=== PATIENT | female | born 1955 | race African-American/Black ===

== ENCOUNTER → 2016-12-21 | Outpatient (CLI) | payer MEDICARE, MEDICAID ==
[~2016-12-21] MED LIST: ALLO100T PO; B-CO800T2 PO; BENA20TA14 PO; CALC667C5 PO; CARV3.1240 PO; CINA30TA2 PO; FOLITAB22 PO; ISOS60TA24 PO; LANT1000 PO; LEV100T GT; LOVA20TA4 PO; MID10T PO; PREG50CA PO; SEVE800T8 PO
[2016-12-22 05:07] LABS: Rheumatoid Arthritis Factor <10.0 IU/mL (0.0-13.9)
== END | disposition home or self-care (01) ==
LOC: LAB 11:21
PROVIDERS: ATTEND Internal Medicine
DX: M25.50 Pain in unspecified joint (principal)
CPT/HCPCS: 36415; 82607; 83540; 84550; 86038; 86200; 86431

== ENCOUNTER 2017-04-06 23:21 | Inpatient (IN) | payer MEDICARE, MEDICAID ==
[~2017-04-06] VITALS: Ht 160 cm; Wt 147.3 kg
[2017-04-06] MEDS ORDERED: VANCOMYCIN 1GM/250ML 250 ML IV ONE (23:45)
[2017-04-06] MEDS ORDERED: cefTRIAXone 1GM/10ml IVPUSH 10 ML IV ONE (23:45)
[2017-04-07 00:23] LABS: Basophils # (auto) 0.1 uL; Basophils % (auto) 0.6 % (0.0-2.0); Eosinophils # (auto) 0.2 uL; Eosinophils % (auto) 2.3 % (0.0-7.0); Hematocrit 29.4 % (36.0-46.0); Hemoglobin 9.7 g/dL (12.2-16.2); Lymphocytes # (auto) 1.2 uL; Lymphocytes % (auto) 12.4 % (10.0-50.0); Mean Corpuscular Hemoglobin 30.4 pg (28.0-32.0); Mean Corpuscular Volume 92.3 fL (80.0-100.0); Monocytes # (auto) 0.9 uL; Monocytes % (auto) 8.6 % (0.0-12.0); Neutrophils # (auto) 7.6 uL; Neutrophils % (auto) 76.1 % (37.0-80.0); Platelet Count (auto) 231 10^3/uL (140-450); Red Blood Cells 3.18 10^6/uL (4.0-5.20); Red Cell Distribution Width 14.7 % (11.8-14.3)
[2017-04-07 00:50] LABS: Albumin 3.2 g/dL (3.4-5.0); BUN/Creatinine Ratio 3.4; Bilirubin, Total 0.5 mg/dL (0.2-1.0); Calcium 8.2 mg/dL (8.5-10.1); Total Protein 8.4 g/dL (6.4-8.2)
[2017-04-07] MEDS ORDERED: CARVEDILOL 3.125 MG TAB PO ONE (02:25)
[2017-04-07] MEDS ORDERED: HYDROcodone-ACET 5/325MG TAB PO ONE (02:25)
[2017-04-07] MEDS ORDERED: B-COTAB26 OR (05:08)
[2017-04-07] MEDS ORDERED: LEVO112T4 PO (05:18)
[2017-04-07] MEDS ORDERED: CINA30TA2 PO ×2 (05:18→18:50)
[2017-04-07] MEDS ORDERED: CARV3.1240 PO (05:18)
[2017-04-07] MEDS ORDERED: ISOS60TA24 PO (05:18)
[2017-04-07] MEDS ORDERED: CALC667T2 PO (05:18)
[2017-04-07] MEDS ORDERED: FOLI1TAB6 PO ×2 (05:18)
[2017-04-07] MEDS ORDERED: LOVA20TA4 PO (05:18)
[2017-04-07] MEDS ORDERED: BENA20TA14 PO (05:18)
[2017-04-07] MEDS ORDERED: ALLO100T PO (05:18)
[2017-04-07] MEDS ORDERED: VANCOMYCIN PER PHARMACY 0 MG IV SCH (05:30)
[2017-04-07] MEDS: PIPERACILLIN-TAZOB 2.25GM 50 ML IV SCH ×2 (06:25→18:31)
[2017-04-07] MEDS ORDERED: ONDANSETRON HCL 4 MG/2 ML VIAL IV PRN (07:00)
[2017-04-07] MEDS ORDERED: ACETAMINOPHEN 500 MG TAB PO PRN (07:00)
[2017-04-07] MEDS: LEVOTHYROXINE SODIUM 112 MCG TAB PO SCH (07:30)
[2017-04-07] MEDS: SEVELAMER 800 MG TAB PO SCH ×3 (07:34→17:32)
[2017-04-07 08:00] VITALS: BP 146/64
[2017-04-07 09:00] VITALS: BP 148/98
[2017-04-07] MEDS: CARVEDILOL 3.125 MG TAB PO SCH ×2 (09:08→21:55)
[2017-04-07] MEDS ORDERED: EPOETIN ALFA 10,000 UNIT/1 ML VIAL IV ONE (09:45)
[2017-04-07] MEDS ORDERED: SODIUM CHL 0.9% 1000 ML BAG XX ONE (09:45)
[2017-04-07] MEDS ORDERED: ISOSORBIDE MONONITRATE 60 MG TAB PO SCH (10:00)
[2017-04-07] MEDS: HYDROcodone-ACET 5/325MG TAB PO PRN ×2 (12:04→23:24)
[2017-04-07 13:00] VITALS: BP 126/69
[2017-04-07] MEDS ORDERED: BENAZEPRIL HCL 10 MG TAB PO ONE (13:30)
[2017-04-07] MEDS ORDERED: ISOSORBIDE MONONITRATE 60 MG TAB PO ONE (13:30)
[2017-04-07 14:50] LABS: Free T3 1.88 pg/mL (2.3-4.2); Free T4 (Free Thyroxine) 0.78 ng/dL (0.89-1.76)
[2017-04-07 16:46] VITALS: BP 140/71
[2017-04-07] MEDS ORDERED: LANT1000 PO (18:47)
[2017-04-07] MEDS ORDERED: ASPI81TA27 PO (18:47)
[2017-04-07] MEDS ORDERED: MIDO10TA PO (18:50)
[2017-04-07 21:49] VITALS: BP 150/90
[2017-04-07] MEDS: ATORVASTATIN 20 MG TAB PO SCH (22:23)
[2017-04-07] MEDS ORDERED: VANCOMYCIN 1GM/250ML 250 ML IV SCH (23:00)
[2017-04-08] VITALS (7 sets, daily range): BP systolic 131–179; BP diastolic 61–95
[2017-04-08] MEDS: PIPERACILLIN-TAZOB 2.25GM 50 ML IV SCH ×2 (06:11→18:04)
[2017-04-08] MEDS: HYDROcodone-ACET 5/325MG TAB PO PRN ×4 (06:16→21:54)
[2017-04-08] MEDS: LEVOTHYROXINE SODIUM 112 MCG TAB PO SCH (06:34)
[2017-04-08 06:43] LABS: Basophils # (auto) 0.1 uL; Eosinophils # (auto) 0.3 uL; Eosinophils % (auto) 4.6 % (0.0-7.0); Hematocrit 27.2 % (36.0-46.0); Hemoglobin 8.9 g/dL (12.2-16.2); Lymphocytes # (auto) 1.7 uL; Lymphocytes % (auto) 22.9 % (10.0-50.0); Mean Corpuscular Hemoglobin 30.6 pg (28.0-32.0); Mean Corpuscular Hgb Conc. 32.7 g/dL (32.0-36.0); Mean Corpuscular Volume 93.7 fL (80.0-100.0); Monocytes # (auto) 0.8 uL; Monocytes % (auto) 10.5 % (0.0-12.0); Neutrophils # (auto) 4.6 uL; Platelet Count (auto) 232 10^3/uL (140-450); Red Cell Distribution Width 15.1 % (11.8-14.3); White Blood Cell 7.5 10^3/uL (4.4-10.8)
[2017-04-08 07:11] LABS: BUN/Creatinine Ratio 4.1; Calcium 8.5 mg/dL (8.5-10.1); INR 1.06 (0.9-1.15); Partial Thromboplastin Time 29.1 sec (22.64-33.71); Potassium 4.3 mmol/L (3.5-5.1); Prothrombin Time 11.6 sec (9.37-12.3)
[2017-04-08 07:13] LABS: Bilirubin, Total 0.5 mg/dL (0.2-1.0); Total Protein 7.8 g/dL (6.4-8.2)
[2017-04-08] MEDS ORDERED: diphenhdrAMINE HCL 50 MG/1 ML VL IV ONE (07:30)
[2017-04-08] MEDS: SEVELAMER 800 MG TAB PO SCH ×3 (08:00→18:04)
[2017-04-08] MEDS ORDERED: EPOETIN ALFA 10,000 UNIT/1 ML VIAL IV ONE ×2 (10:00→20:15)
[2017-04-08] MEDS: BENAZEPRIL HCL 10 MG TAB PO SCH (10:48)
[2017-04-08] MEDS: ISOSORBIDE MONONITRATE 60 MG TAB PO SCH (10:49)
[2017-04-08] MEDS: CARVEDILOL 3.125 MG TAB PO SCH ×2 (10:52→21:50)
[2017-04-08] MEDS ORDERED: LABETALOL HCL 5 MG/ML ML 20ML VIAL IV PRN (11:15)
[2017-04-08] MEDS ORDERED: PREG75CA PO (16:14)
[2017-04-08] MEDS ORDERED: SEVE800T8 PO (17:05)
[2017-04-08] MEDS ORDERED: SODIUM CHL 0.9% 1000 ML BAG XX ONE (20:15)
[2017-04-08] MEDS: ATORVASTATIN 20 MG TAB PO SCH (21:49)
[2017-04-08] MEDS: PREGABALIN CAPSULE 75 MG CAP PO SCH (21:50)
[2017-04-09] MEDS: HYDROcodone-ACET 5/325MG TAB PO PRN ×4 (02:30→22:46)
[2017-04-09 05:00] VITALS: BP 150/70
[2017-04-09] MEDS: PIPERACILLIN-TAZOB 2.25GM 50 ML IV SCH (05:58)
[2017-04-09] MEDS: LEVOTHYROXINE SODIUM 25 MCG TAB PO SCH (06:47)
[2017-04-09] MEDS: LEVOTHYROXINE SODIUM 100 MCG TAB PO SCH (06:47)
[2017-04-09 06:53] LABS: BUN/Creatinine Ratio 3.9; Bilirubin, Total 0.5 mg/dL (0.2-1.0); Calcium 8.3 mg/dL (8.5-10.1); Potassium 4.2 mmol/L (3.5-5.1); Total Protein 7.8 g/dL (6.4-8.2)
[2017-04-09 08:00] VITALS: BP 182/93
[2017-04-09] MEDS: SEVELAMER 800 MG TAB PO SCH ×3 (08:00→18:58)
[2017-04-09 09:00] VITALS: BP 137/113
[2017-04-09] MEDS ORDERED: VANCOMYCIN 1GM/250ML 250 ML IV ONE (09:00)
[2017-04-09] MEDS ORDERED: LEVOFLOXACIN 250MG 50 ML IV SCH (09:15)
[2017-04-09] MEDS ORDERED: LEVOFLOXACIN 750MG 150 ML IV ONE (09:15)
[2017-04-09] MEDS: PREGABALIN CAPSULE 75 MG CAP PO SCH ×2 (10:00→21:56)
[2017-04-09] MEDS: CARVEDILOL 3.125 MG TAB PO SCH ×2 (11:42→22:12)
[2017-04-09] MEDS: BENAZEPRIL HCL 10 MG TAB PO SCH (11:42)
[2017-04-09] MEDS: ISOSORBIDE MONONITRATE 60 MG TAB PO SCH (11:43)
[2017-04-09 12:30] VITALS: BP 151/78
[2017-04-09] MEDS ORDERED: BUPIVACAINE 0.75% INJ 10ML MPV SDV IJ ONE (13:03)
[2017-04-09] MEDS ORDERED: ceFAZolin 1GM VL ONE (13:03)
[2017-04-09] MEDS ORDERED: NEOMYCIN-BACITRACIN-POLYM 15GM TOP OINT TOP ONE (13:03)
[2017-04-09] MEDS ORDERED: MIDAZOLAM HCL 1MG/1ML-2 ML VIAL ONE (14:12)
[2017-04-09] MEDS ORDERED: PROPOFOL 10 MG/ML 20 ML IV ONE (14:12)
[2017-04-09] MEDS ORDERED: fentaNYL CITRATE 100 MCG/2 ML VL ONE (14:12)
[2017-04-09] MEDS ORDERED: ONDANSETRON HCL 4 MG/2 ML VIAL IV ONE (14:45)
[2017-04-09] MEDS ORDERED: hydrALAZINE HCL 20 MG/ML VL IV PRN (14:45)
[2017-04-09] MEDS ORDERED: ePHEDrine SULFATE 50 MG/ML AMP IV PRN (14:45)
[2017-04-09] MEDS ORDERED: fentaNYL CITRATE 100 MCG/2 ML VL IV ONE (15:00)
[2017-04-09 16:21] VITALS: BP 145/75
[2017-04-09] MEDS: ATORVASTATIN 20 MG TAB PO SCH (21:56)
[2017-04-09 22:02] VITALS: BP 154/88
[2017-04-10] MEDS: HYDROcodone-ACET 5/325MG TAB PO PRN ×2 (03:28→17:57)
[2017-04-10 05:00] VITALS: BP 130/75
[2017-04-10] MEDS: LEVOTHYROXINE SODIUM 25 MCG TAB PO SCH (06:15)
[2017-04-10] MEDS: LEVOTHYROXINE SODIUM 100 MCG TAB PO SCH (06:15)
[2017-04-10 08:00] VITALS: BP 131/81
[2017-04-10] MEDS: SEVELAMER 800 MG TAB PO SCH ×3 (08:15→19:03)
[2017-04-10 08:38] LABS: Albumin 2.7 g/dL (3.4-5.0); BUN/Creatinine Ratio 4.5; Calcium 8.6 mg/dL (8.5-10.1)
[2017-04-10 08:40] LABS: Bilirubin, Total 0.4 mg/dL (0.2-1.0); Total Protein 7.4 g/dL (6.4-8.2)
[2017-04-10 08:53] VITALS: BP 131/81
[2017-04-10] MEDS: ISOSORBIDE MONONITRATE 60 MG TAB PO SCH (09:40)
[2017-04-10] MEDS: PREGABALIN CAPSULE 75 MG CAP PO SCH (09:40)
[2017-04-10] MEDS: CARVEDILOL 3.125 MG TAB PO SCH (09:40)
[2017-04-10] MEDS: BENAZEPRIL HCL 10 MG TAB PO SCH (09:41)
[2017-04-10] MEDS ORDERED: LEVOFLOXACIN 250MG 50 ML IV SCH (10:00)
[2017-04-10] MEDS ORDERED: BACITRACIN TOP OINT 1 UD PKG TOP ONE (12:00)
[2017-04-10 13:14] VITALS: BP 136/85
[2017-04-10] MEDS ORDERED: VANCOMYCIN 500 MG in D5W 5% 100 ML IV ONE (14:00)
[2017-04-10] MEDS ORDERED: EPOETIN ALFA 10,000 UNIT/1 ML VIAL IV ONE (15:30)
[2017-04-10 17:00] VITALS: BP 115/65
== END 2017-04-10 18:00 | disposition home health service (06) | DRG 623 ==
LOC: ER 23:25 → OVERFLOW 23:26 → WEST WING 04-07 08:06
PROVIDERS: ADMIT Nurse Practitioner Family; ATTEND Internal Medicine
PROC: 5A1D70Z Performance of Urinary Filtration, Intermittent, Less than 6 Hours Per Day (ICD-10-PCS; 2017-04-08)
PROC: 0J9Q0ZX Drainage of Right Foot Subcutaneous Tissue and Fascia, Open Approach, Diagnostic (ICD-10-PCS; 2017-04-09)
PROC: 0JBQ0ZZ Excision of Right Foot Subcutaneous Tissue and Fascia, Open Approach (ICD-10-PCS; principal; 2017-04-09 14:03)
PROC: 5A1D70Z Performance of Urinary Filtration, Intermittent, Less than 6 Hours Per Day (ICD-10-PCS; 2017-04-10)
DX: E11.621 Type 2 diabetes mellitus with foot ulcer (principal); I13.2 Hypertensive heart and chronic kidney disease with heart failure and with stage 5 chronic kidney disease, or end stage renal disease; L97.519 Non-pressure chronic ulcer of other part of right foot with unspecified severity; E44.0 Moderate protein-calorie malnutrition; E11.21 Type 2 diabetes mellitus with diabetic nephropathy; L03.115 Cellulitis of right lower limb; L02.611 Cutaneous abscess of right foot; Z68.43 Body mass index [BMI] 50.0-59.9, adult; N18.6 End stage renal disease; E11.22 Type 2 diabetes mellitus with diabetic chronic kidney disease; D63.8 Anemia in other chronic diseases classified elsewhere; E03.9 Hypothyroidism, unspecified; M10.9 Gout, unspecified; E11.628 Type 2 diabetes mellitus with other skin complications; B95.62 Methicillin resistant Staphylococcus aureus infection as the cause of diseases classified elsewhere; E66.01 Morbid (severe) obesity due to excess calories; E78.5 Hyperlipidemia, unspecified; E21.3 Hyperparathyroidism, unspecified; E87.5 Hyperkalemia; G89.29 Other chronic pain; M54.9 Dorsalgia, unspecified; I50.9 Heart failure, unspecified; Z79.899 Other long term (current) drug therapy; Z82.49 Family history of ischemic heart disease and other diseases of the circulatory system; Z83.3 Family history of diabetes mellitus; Z86.73 Personal history of transient ischemic attack (TIA), and cerebral infarction without residual deficits; Z99.2 Dependence on renal dialysis; Z90.710 Acquired absence of both cervix and uterus; Z71.3 Dietary counseling and surveillance
CPT/HCPCS: 36415; 71045; 73630; 73700; 80053; 80202; 83605; 84439; 84443; 84481; 85025; 85610; 85652; 85730; 87040; 87070; 87075; 87077; 87186; 87205; 90935; 93005; 93926; 96365; 96375; J0690; J0885; J1642; J1956; J2250; J2543; J2704; J3490; J7060

== ENCOUNTER → 2017-04-20 | Outpatient (CLI) | payer MEDICARE, MEDICAID ==
[~2017-04-20] MED LIST changes: +ASPI81TA27 PO; +FOLI1TAB6 PO; -FOLITAB22 PO; -LEV100T GT; -MID10T PO; +MIDO10TA PO; -PREG50CA PO; +PREG75CA PO
== END | disposition home or self-care (01) ==
LOC: LAB 14:07
PROVIDERS: ATTEND Internal Medicine
DX: E03.9 Hypothyroidism, unspecified (principal); M25.50 Pain in unspecified joint; R51 Headache; Z86.79 Personal history of other diseases of the circulatory system; Z99.2 Dependence on renal dialysis
CPT/HCPCS: 36415; 82565; 84439; 84443; 84520; 86225; 86235

== ENCOUNTER → 2017-09-03 | Outpatient (CLI) | payer MEDICARE, MEDICAID ==
[2017-09-03 12:56] LABS: Basophils # (auto) 0 uL; Basophils % (auto) 0.4 % (0.0-2.0); Eosinophils # (auto) 0.1 uL; Eosinophils % (auto) 2.2 % (0.0-7.0); Hematocrit 35.7 % (36.0-46.0); Hemoglobin 11.5 g/dL (12.2-16.2); Lymphocytes # (auto) 1.6 uL; Lymphocytes % (auto) 28.5 % (10.0-50.0); Mean Corpuscular Hgb Conc. 32.2 g/dL (32.0-36.0); Mean Corpuscular Volume 89.9 fL (80.0-100.0); Monocytes # (auto) 0.5 uL; Monocytes % (auto) 8.8 % (0.0-12.0); Neutrophils # (auto) 3.5 uL; Neutrophils % (auto) 60.1 % (37.0-80.0); Nucleated Red Blood Cells % 0.1 %; Platelet Count (auto) 183 10^3/uL (140-450); Red Blood Cells 3.98 10^6/uL (4.0-5.20); Red Cell Distribution Width 17.4 % (11.8-14.3); White Blood Cell 5.8 10^3/uL (4.4-10.8)
[2017-09-03 13:13] LABS: Albumin 3.5 g/dL (3.4-5.0); BUN/Creatinine Ratio 5.4; Bilirubin, Total 0.5 mg/dL (0.2-1.0); Calcium 8.7 mg/dL (8.5-10.1); Total Protein 8.3 g/dL (6.4-8.2); Uric Acid 3.4 mg/dL (2.6-6.0)
[2017-09-03 13:20] LABS: Free T4 (Free Thyroxine) 0.7 ng/dL (0.89-1.76)
== END | disposition home or self-care (01) ==
LOC: LAB 11:53
PROVIDERS: ATTEND Internal Medicine
DX: I12.0 Hypertensive chronic kidney disease with stage 5 chronic kidney disease or end stage renal disease (principal); E11.22 Type 2 diabetes mellitus with diabetic chronic kidney disease; N18.6 End stage renal disease; E78.5 Hyperlipidemia, unspecified; E03.9 Hypothyroidism, unspecified; E78.00 Pure hypercholesterolemia, unspecified; R11.0 Nausea
CPT/HCPCS: 36415; 80053; 82150; 82607; 83540; 83615; 83690; 84439; 84443; 84550; 85025

== ENCOUNTER → 2018-05-24 | Outpatient (CLI) | payer MEDICARE, MEDICAID ==
[2018-05-24 12:13] LABS: Basophils # (auto) 0.1 uL; Basophils % (auto) 0.9 % (0.0-2.0); Eosinophils # (auto) 0.1 uL; Eosinophils % (auto) 2.3 % (0.0-7.0); Hematocrit 37.8 % (36.0-46.0); Hemoglobin 12.3 g/dL (12.2-16.2); Mean Corpuscular Hgb Conc. 32.5 g/dL (32.0-36.0); Mean Corpuscular Volume 89.2 fL (80.0-100.0); Monocytes # (auto) 0.4 uL; Monocytes % (auto) 7.2 % (0.0-12.0); Neutrophils # (auto) 3.4 uL; Neutrophils % (auto) 56.6 % (37.0-80.0); Nucleated Red Blood Cells % 0.1 %; Platelet Count (auto) 181 10^3/uL (140-450); Red Blood Cells 4.24 10^6/uL (4.0-5.20); Red Cell Distribution Width 15.9 % (11.8-14.3)
[2018-05-24 12:40] LABS: Albumin 3.4 g/dL (3.4-5.0); Calcium 9.9 mg/dL (8.5-10.1); Potassium 4.5 mmol/L (3.5-5.1)
[2018-05-24 12:47] LABS: BUN/Creatinine Ratio 5.6; Bilirubin, Total 0.5 mg/dL (0.2-1.0); Total Protein 8.2 g/dL (6.4-8.2)
[2018-05-24 12:51] LABS: Free T4 (Free Thyroxine) 0.72 ng/dL (0.89-1.76)
== END | disposition home or self-care (01) ==
LOC: LAB 11:23
PROVIDERS: ATTEND Internal Medicine
DX: I13.2 Hypertensive heart and chronic kidney disease with heart failure and with stage 5 chronic kidney disease, or end stage renal disease (principal); N18.5 Chronic kidney disease, stage 5
CPT/HCPCS: 36415; 80053; 80061; 82607; 84207; 84439; 84443; 84550; 85025; 85652

== ENCOUNTER 2019-05-01 19:09 | Inpatient (IN) | payer MEDICARE, MEDICAID ==
[~2019-05-01] VITALS: Ht 160 cm; Wt 112.7 kg
[~2019-05-01 19:09] MED LIST changes: +ASPI-404 PO; -ASPI81TA27 PO; -BENA20TA14 PO; -CALC667C5 PO; -ISOS60TA24 PO; +LEVO112T4 PO; -MIDO10TA PO; +MIDO10TA2 PO; -SEVE800T8 PO; +WARF1TAB PO
[2019-05-01] MEDS ORDERED: ONDANSETRON HCL 4 MG/2 ML VIAL IV ONE (19:30)
[2019-05-01] MEDS ORDERED: MORPHINE SULFATE 10 MG/ML INJ 1ML SDV IV ONE (19:30)
[2019-05-01] MEDS ORDERED: LORazepam 2MG/ML-1ML VIAL IV ONE (19:30)
[2019-05-01 21:10] LABS: Basophils # (auto) 0 uL; Eosinophils # (auto) 0 uL; Hemoglobin 7.2 g/dL (12.2-16.2)
[2019-05-01 21:13] LABS: Basophils % (auto) 0.1 % (0.0-2.0); Eosinophils % (auto) 0.1 % (0.0-7.0); Hematocrit 21.6 % (36.0-46.0); Lymphocytes # (auto) 1.4 uL; Lymphocytes % (auto) 13.3 % (10.0-50.0); Mean Corpuscular Hemoglobin 28.6 pg (28.0-32.0); Mean Corpuscular Hgb Conc. 33.1 g/dL (32.0-36.0); Mean Corpuscular Volume 86.4 fL (80.0-100.0); Monocytes # (auto) 0.7 uL; Monocytes % (auto) 6.9 % (0.0-12.0); Neutrophils # (auto) 8.4 uL; Neutrophils % (auto) 79.6 % (37.0-80.0); Platelet Count (auto) 214 10^3/uL (140-450); Red Cell Distribution Width 22.9 % (11.8-14.3); White Blood Cell 10.6 10^3/uL (4.4-10.8)
[2019-05-01 21:29] LABS: INR 1.36 (0.9-1.15); Partial Thromboplastin Time 65.5 sec (23.64-32.05)
[2019-05-01] MEDS ORDERED: SODIUM CHLORIDE 0.9% 500 ML IV ONE (21:30)
[2019-05-01] MEDS ORDERED: NITROGLYCERIN 0.4MG/HR TOPICAL PATCH TD ONE (21:30)
[2019-05-01 21:41] LABS: Albumin 2.4 g/dL (3.4-5.0); BUN/Creatinine Ratio 4.5; Bilirubin, Total 0.9 mg/dL (0.2-1.0); Calcium 8.5 mg/dL (8.5-10.1); Magnesium 1.9 mg/dL (1.6-2.6); Total Protein 7.9 g/dL (6.4-8.2)
[2019-05-02] VITALS (8 sets, daily range): BP systolic 80–112; BP diastolic 32–84
[2019-05-02] MEDS ORDERED: DOCUSATE SOD 100 MG CAP PO PRN
[2019-05-02] MEDS ORDERED: MORPHINE SULFATE 4 MG/ML SYR/VIAL IV PRN
[2019-05-02] MEDS ORDERED: NITROGLYCERIN 0.4 MG SL TAB SL PRN
[2019-05-02] MEDS ORDERED: ACETAMINOPHEN 325 MG TAB PO PRN
[2019-05-02] MEDS ORDERED: ONDANSETRON HCL 4 MG/2 ML VIAL IV PRN
[2019-05-02] MEDS ORDERED: MORPHINE SULF INJ 2 MG/ML SYRINGE 1ML IV PRN
[2019-05-02] MEDS: HYDROcodone-ACET 5/325MG TAB PO PRN ×4 (03:02→20:47)
[2019-05-02] MEDS: LEVOTHYROXINE SODIUM 112 MCG TAB PO SCH (06:32)
[2019-05-02] MEDS ORDERED: CARVEDILOL 3.125 MG TAB PO SCH ×2 (10:00→22:00)
[2019-05-02] MEDS: CINACALCET HYDROCHLORIDE 30 MG TAB PO SCH (10:00)
[2019-05-02] MEDS ORDERED: PATIENTS OWN MEDICATION (Lovastatin 10 MG) PO SCH (10:00)
[2019-05-02] MEDS: ASPirin-EC 81 mg tab PO SCH (10:37)
[2019-05-02] MEDS: FOLIC ACID 1 MG TAB PO SCH (10:48)
[2019-05-02] MEDS ORDERED: POTASSIUM CHL 20 Meq TABLET PO ONE (15:45)
[2019-05-02 16:32] LABS: Basophils # (auto) 0.1 uL; Eosinophils # (auto) 0.1 uL; Eosinophils % (auto) 1.2 % (0.0-7.0); Lymphocytes # (auto) 1.5 uL; Monocytes # (auto) 0.9 uL; Platelet Count (auto) 232 10^3/uL (140-450)
[2019-05-02 16:34] LABS: Basophils % (auto) 0.8 % (0.0-2.0); Hematocrit 20.5 % (36.0-46.0); Lymphocytes % (auto) 17.1 % (10.0-50.0); Mean Corpuscular Hemoglobin 27.9 pg (28.0-32.0); Mean Corpuscular Hgb Conc. 32.1 g/dL (32.0-36.0); Monocytes % (auto) 10.1 % (0.0-12.0); Neutrophils # (auto) 6.4 uL; Neutrophils % (auto) 70.8 % (37.0-80.0); Red Blood Cells 2.36 10^6/uL (4.0-5.20)
[2019-05-02 16:37] LABS: Red Cell Distribution Width 22.8 % (11.8-14.3)
[2019-05-02 16:39] LABS: Hemoglobin 6.6 g/dL (12.2-16.2)
[2019-05-02 16:49] LABS: Albumin 2.3 g/dL (3.4-5.0); Calcium 8.4 mg/dL (8.5-10.1); Potassium 3.3 mmol/L (3.5-5.1)
[2019-05-02 16:53] LABS: BUN/Creatinine Ratio 4.3; Bilirubin, Total 0.8 mg/dL (0.2-1.0); Total Protein 7.4 g/dL (6.4-8.2)
[2019-05-02] MEDS ORDERED: WARFARIN SODIUM 1 MG TAB PO SCH (17:00)
[2019-05-02] MEDS: CARVEDILOL 3.125 MG TAB PO SCH (18:00)
[2019-05-02] MEDS: MORPHINE SULF INJ 2 MG/ML SYRINGE 1ML IV PRN (19:19)
[2019-05-02] MEDS: ATORVASTATIN 20 MG TAB PO SCH (21:25)
[2019-05-02] MEDS: APIXABAN 5 MG TAB PO SCH (21:25)
[2019-05-02] MEDS ORDERED: PRAVASTATIN SODIUM 20 MG TAB PO SCH (22:00)
[2019-05-02] MEDS ORDERED: PREGABALIN CAPSULE 75 MG CAP PO ONE (22:45)
[2019-05-03] VITALS (7 sets, daily range): BP systolic 97–147; BP diastolic 46–68
[2019-05-03 05:11] LABS: Eosinophils # (auto) 0.2 uL
[2019-05-03 05:18] LABS: Basophils # (auto) 0 uL; Basophils % (auto) 0.4 % (0.0-2.0); Hematocrit 24.2 % (36.0-46.0); Hemoglobin 8.1 g/dL (12.2-16.2); Lymphocytes # (auto) 1.7 uL; Lymphocytes % (auto) 18.7 % (10.0-50.0); Mean Corpuscular Hemoglobin 29.1 pg (28.0-32.0); Mean Corpuscular Hgb Conc. 33.3 g/dL (32.0-36.0); Mean Corpuscular Volume 87.6 fL (80.0-100.0); Monocytes % (auto) 10.6 % (0.0-12.0); Neutrophils # (auto) 6.2 uL; Neutrophils % (auto) 68.3 % (37.0-80.0); Platelet Count (auto) 243 10^3/uL (140-450); Red Blood Cells 2.77 10^6/uL (4.0-5.20)
[2019-05-03 05:36] LABS: Calcium 8.5 mg/dL (8.5-10.1); Potassium 3.6 mmol/L (3.5-5.1)
[2019-05-03 05:43] LABS: BUN/Creatinine Ratio 4.6
[2019-05-03] MEDS: LEVOTHYROXINE SODIUM 112 MCG TAB PO SCH (05:53)
[2019-05-03] MEDS: MORPHINE SULF INJ 2 MG/ML SYRINGE 1ML IV PRN ×4 (05:59→21:10)
[2019-05-03] MEDS ORDERED: SODIUM CHL 0.9% 1000 ML BAG XX ONE (07:00)
[2019-05-03] MEDS: CARVEDILOL 3.125 MG TAB PO SCH ×2 (08:00→17:42)
[2019-05-03] MEDS: ASPirin-EC 81 mg tab PO SCH (09:17)
[2019-05-03] MEDS: CINACALCET HYDROCHLORIDE 30 MG TAB PO SCH (09:17)
[2019-05-03] MEDS: FOLIC ACID 1 MG TAB PO SCH (09:17)
[2019-05-03] MEDS: APIXABAN 5 MG TAB PO SCH ×2 (09:17→21:10)
[2019-05-03] MEDS: HYDROcodone-ACET 5/325MG TAB PO PRN ×2 (13:11→18:55)
[2019-05-03] MEDS ORDERED: EPOETIN ALFA 10,000 UNIT/1 ML VIAL SC ONE (21:00)
[2019-05-03] MEDS: ATORVASTATIN 20 MG TAB PO SCH (21:10)
[2019-05-04] MEDS: HYDROcodone-ACET 5/325MG TAB PO PRN ×5 (00:15→21:58)
[2019-05-04] MEDS: MORPHINE SULF INJ 2 MG/ML SYRINGE 1ML IV PRN ×4 (01:45→20:11)
[2019-05-04 05:41] VITALS: BP 101/61
[2019-05-04] MEDS: LEVOTHYROXINE SODIUM 112 MCG TAB PO SCH (06:43)
[2019-05-04] MEDS: CARVEDILOL 3.125 MG TAB PO SCH ×2 (08:00→17:17)
[2019-05-04 09:03] VITALS: BP 109/52
[2019-05-04] MEDS: APIXABAN 5 MG TAB PO SCH ×2 (09:31→21:05)
[2019-05-04] MEDS: ASPirin-EC 81 mg tab PO SCH (09:31)
[2019-05-04] MEDS: FOLIC ACID 1 MG TAB PO SCH (09:32)
[2019-05-04] MEDS: CINACALCET HYDROCHLORIDE 30 MG TAB PO SCH (09:33)
[2019-05-04] MEDS ORDERED: ADENOSINE 96 MG in GIVE UN-DILUTED 0 ML IV ONE (10:30)
[2019-05-04 12:49] VITALS: BP 98/58
[2019-05-04 16:39] VITALS: BP 86/43
[2019-05-04 16:54] VITALS: BP 93/62
[2019-05-04] MEDS: ATORVASTATIN 20 MG TAB PO SCH (21:05)
[2019-05-04 22:28] VITALS: BP 120/66
[2019-05-05] VITALS (7 sets, daily range): BP systolic 75–131; BP diastolic 34–72
[2019-05-05] MEDS: MORPHINE SULF INJ 2 MG/ML SYRINGE 1ML IV PRN ×4 (04:00→18:20)
[2019-05-05] MEDS: LEVOTHYROXINE SODIUM 112 MCG TAB PO SCH (05:54)
[2019-05-05] MEDS ORDERED: SODIUM CHL 0.9% 1000 ML BAG XX ONE (07:00)
[2019-05-05] MEDS: CARVEDILOL 3.125 MG TAB PO SCH ×2 (08:51→18:20)
[2019-05-05] MEDS: ASPirin-EC 81 mg tab PO SCH (10:58)
[2019-05-05] MEDS: CINACALCET HYDROCHLORIDE 30 MG TAB PO SCH (10:58)
[2019-05-05] MEDS: APIXABAN 5 MG TAB PO SCH ×2 (10:58→21:41)
[2019-05-05] MEDS: FOLIC ACID 1 MG TAB PO SCH (10:58)
[2019-05-05 19:52] LABS: BUN/Creatinine Ratio 3.6; Potassium 4.1 mmol/L (3.5-5.1)
[2019-05-05] MEDS ORDERED: EPOETIN ALFA 10,000 UNIT/1 ML VIAL SC ONE (21:00)
[2019-05-05] MEDS: ATORVASTATIN 20 MG TAB PO SCH (21:41)
[2019-05-05] MEDS ORDERED: ALBUMIN 5% 250 ML IV ONE (22:15)
[2019-05-06] MEDS ORDERED: TEMAZEPAM 15 MG CAP PO ONE (00:45)
[2019-05-06] MEDS: LEVOTHYROXINE SODIUM 112 MCG TAB PO SCH (05:02)
[2019-05-06 05:37] VITALS: BP 119/73
[2019-05-06 08:00] VITALS: BP 126/56
[2019-05-06] MEDS: CARVEDILOL 3.125 MG TAB PO SCH (08:00)
[2019-05-06 08:36] VITALS: BP 126/56
[2019-05-06] MEDS: CINACALCET HYDROCHLORIDE 30 MG TAB PO SCH (11:05)
[2019-05-06] MEDS: ASPirin-EC 81 mg tab PO SCH (11:05)
[2019-05-06] MEDS: FOLIC ACID 1 MG TAB PO SCH (11:05)
[2019-05-06] MEDS: APIXABAN 5 MG TAB PO SCH (11:05)
[2019-05-06] MEDS: MORPHINE SULF INJ 2 MG/ML SYRINGE 1ML IV PRN (12:25)
== END 2019-05-06 12:26 | disposition home health service (06) | DRG 602 ==
LOC: EDBD 19:09 → ER 19:09 → TELE-CENTR 19:10
PROVIDERS: ADMIT Hospitalist; ATTEND Family Medicine
PROC: 30233N1 Transfusion of Nonautologous Red Blood Cells into Peripheral Vein, Percutaneous Approach (ICD-10-PCS; principal; 2019-05-02)
PROC: 5A1D70Z Performance of Urinary Filtration, Intermittent, Less than 6 Hours Per Day (ICD-10-PCS; 2019-05-03)
PROC: 5A1D70Z Performance of Urinary Filtration, Intermittent, Less than 6 Hours Per Day (ICD-10-PCS; 2019-05-05)
DX: L03.311 Cellulitis of abdominal wall (principal); N18.6 End stage renal disease; I13.2 Hypertensive heart and chronic kidney disease with heart failure and with stage 5 chronic kidney disease, or end stage renal disease; G93.40 Encephalopathy, unspecified; E87.1 Hypo-osmolality and hyponatremia; I82.721 Chronic embolism and thrombosis of deep veins of right upper extremity; Z68.41 Body mass index [BMI] 40.0-44.9, adult; R07.89 Other chest pain; E87.6 Hypokalemia; D63.1 Anemia in chronic kidney disease; E78.00 Pure hypercholesterolemia, unspecified; I95.9 Hypotension, unspecified; L89.102 Pressure ulcer of unspecified part of back, stage 2; E11.22 Type 2 diabetes mellitus with diabetic chronic kidney disease; E66.01 Morbid (severe) obesity due to excess calories; E78.5 Hyperlipidemia, unspecified; I25.10 Atherosclerotic heart disease of native coronary artery without angina pectoris; I48.91 Unspecified atrial fibrillation; M54.5 Low back pain; E03.9 Hypothyroidism, unspecified; I50.9 Heart failure, unspecified; Z53.29 Procedure and treatment not carried out because of patient's decision for other reasons; Z79.01 Long term (current) use of anticoagulants; Z82.49 Family history of ischemic heart disease and other diseases of the circulatory system; Z83.3 Family history of diabetes mellitus; Z86.73 Personal history of transient ischemic attack (TIA), and cerebral infarction without residual deficits; Z95.5 Presence of coronary angioplasty implant and graft; Z99.2 Dependence on renal dialysis; Z90.710 Acquired absence of both cervix and uterus
CPT/HCPCS: 36415; 71045; 80048; 80053; 80061; 83735; 83880; 84443; 84484; 85025; 85610; 85730; 86850; 86900; 86901; 86920; 87081; 87804; 90935; 93005; 93306; 93926; 96361; 96374; 96375; G0378; J0153; J0885; J1642; J2405

== ENCOUNTER 2019-05-09 01:57 | Inpatient (IN) | payer MEDICARE, MEDICAID ==
[~2019-05-09] VITALS: Ht 162.6 cm; Wt 113.4 kg
[2019-05-09] MEDS ORDERED: HYDROmorphone HCL 2 MG/ML VL IV ONE (02:45)
[2019-05-09] MEDS ORDERED: ONDANSETRON HCL 4 MG/2 ML VIAL IV ONE (02:45)
[2019-05-09] MEDS ORDERED: NOREPINEPHRINE 8 MG/250ML KIT 250 ML IV ONE (03:02)
[2019-05-09 03:27] LABS: Basophils # (auto) 0.2 10 ^3/uL (0-0.2); Eosinophils # (auto) 0 10 ^3/uL (0-0.8); Hematocrit 25.7 % (36.0-46.0); Hemoglobin 8.2 g/dL (12.2-16.2); Lymphocytes # (auto) 1.5 10 ^3/uL (0.4-5.4); Lymphocytes % (auto) 9.1 % (10.0-50.0); Mean Corpuscular Hemoglobin 27.8 pg (28.0-32.0); Mean Corpuscular Volume 87.1 fL (80.0-100.0); Monocytes # (auto) 1.3 10 ^3/uL (0-1.3); Monocytes % (auto) 7.8 % (0.0-12.0); Neutrophils # (auto) 13.3 10 ^3/uL (1.6-8.6); Neutrophils % (auto) 82.1 % (37.0-80.0); Platelet Count (auto) 383 10^3/uL (140-450); Red Blood Cells 2.95 10^6/uL (4.0-5.20); White Blood Cell 16.2 10^3/uL (4.4-10.8)
[2019-05-09 03:29] LABS: Red Cell Distribution Width 21.2 % (11.8-14.3)
[2019-05-09] MEDS ORDERED: MORPHINE SULFATE 4 MG/ML SYR/VIAL IV ONE (03:45)
[2019-05-09 03:50] LABS: Albumin 2.2 g/dL (3.4-5.0); BUN/Creatinine Ratio 4.3; Calcium 8.8 mg/dL (8.5-10.1); Potassium 3.4 mmol/L (3.5-5.1)
[2019-05-09 03:52] LABS: Bilirubin, Total 1.1 mg/dL (0.2-1.0); Total Protein 8.2 g/dL (6.4-8.2)
[2019-05-09] MEDS ORDERED: NOREPINEPHRINE 8 MG/250ML KIT 250 ML IV SCH (04:27)
[2019-05-09] MEDS ORDERED: LORazepam 2MG/ML-1ML VIAL IV ONE (04:45)
[2019-05-09] MEDS ORDERED: ONDANSETRON HCL 4 MG/2 ML VIAL IV PRN (05:30)
[2019-05-09] MEDS ORDERED: MORPHINE SULFATE 4 MG/ML SYR/VIAL IV PRN (05:30)
[2019-05-09] MEDS ORDERED: SODIUM CHLORIDE 0.9% 1,000 ML IV SCH (05:30)
[2019-05-09 06:08] LABS: INR 1.47 (0.9-1.15)
[2019-05-09] MEDS ORDERED: SODIUM CHLORIDE 0.9% 500 ML IV ONE (06:15)
[2019-05-09] MEDS ORDERED: cefTRIAXone 1GM/50ML D5W 50 ML IV SCH (07:00)
[2019-05-09] MEDS ORDERED: CLINDAMYCIN 600MG IV 50 ML IV SCH (08:00)
[2019-05-09] MEDS: PANTOPRAZOLE 40 MG/10 ML VIAL INJ IV SCH (11:42)
[2019-05-09] MEDS ORDERED: PIPERACILLIN-TAZOB 2.25GM 50 ML IV SCH (12:15)
[2019-05-09] MEDS ORDERED: metroNIDAZOLE 500 MG TAB PO ONE (12:15)
[2019-05-09] MEDS: metroNIDAZOLE 500 MG TAB PO SCH ×2 (14:51→22:07)
[2019-05-09] MEDS: MEROPENEM 500MG IVPB 50 ML IV SCH ×2 (16:11→22:00)
[2019-05-09] MEDS: HYDROmorphone HCL 2 MG/ML VL IV STA (16:36)
[2019-05-09] MEDS: LORazepam 2MG/ML-1ML VIAL IV PRN (16:52)
--- NOTE | 2019-05-09 17:22 | NUR ---
WOUND CARE NOTE: Wound care into see patient per wound care request regarding wounds that are noted present on admission. Patient is 64 years old female with admitting diagnosis of Abdominal Wound with Cellulitis. Patient with history of anemia, Htn, CHF, ESRD on Dialysis, CVA. Patient is resting in ER bed #10. Patient is awake,alert and able to verbalize needs. Patient is premedicated for pain by her bedside nurse prior skin/wound assessment. Patient is able to assist in turning and repositioning by gabbing onto bed rails. Her Amos score is 13. Skin/wound assessment done with the assistance of patient's nurse, LEROY Geiger. Patient noted with large dehisced abdominal surgical. On reports patient had excision of devitalized tissue of non healing wound on 02/28/19 at different facility. Patient's wounds to lower abdominal area measures 3.5x37x2.5cm. Wound bed is open at center with visible yellow adipose tissue. L anterolateral aspect of abdominal wound has 11 intact christiano. Rt. anterolateral side of abdominal wound has some black eschar. Minimal serous drainage noted, with mild odor noted. Wound culture reported already sent to lab for processing. Patient seen by Dr. Gutierrez and gave order to lightly dressed the wound. Cleansed patient's abdominal wound with NS, patted dry with gauze, lightly pack with one inch iodoform packing strips leaving an inch tail, covered with absorbent pad. Patient's Rt upper buttock noted with large dark ecchymosis vs DTI measuring 3x10cm. Her Rt lower buttock (1.8x14cm) and R thigh and Rt anterolateral abdomen (0.8x6cm) has dry blister. Open blister also noted to her Rt anterolateral abdominal fold measuring 3x2cm. Patient's sacrum has small open full thickness wounds (Stage 3 pressure injury),no measurable depth, measured as one (7x6cm) with non-blanchable redness to surrounding skin. Patient's daughter at bedside reported that patient is unable to walk, stays mostly in bed and sometimes stays seated in bed. She added that patient is also incontinent. Cleansed wounds, applied Z Guard cream and covered sacrum with large Opti foam gentle dressing. Patient tolerated well. LEROY Geiger at bedside. Photograph of patient's wounds are taken for reference. RECOMMENDATION: Nursing to continue with BID/PRN cleaning and application Z Guard cream to sacral, buttocks and thighs wound; Daily/PRN dressing change to abdominal wound per MD order, Dietary consult, surgical consult for possible wound debridement ; frequent turning and repositioning schedule as condition permits, redistribute pressure points with pillows, elevate heels on pillows, air mattress (ordered),frequent rony check/care, keep clean and dry, continue monitoring by wound care while patient is hospitalized. Addendum: 05/09/19 at 1907 by Yelena Chavira RN Amended: Links added.
--- NOTE | 2019-05-09 17:30 | NUR ---
AIR MATTRESS: Air mattress ordered at [facility],Reference # [id number]; ETA @0138, Call [facility] if need to follow up at [phone] Addendum: 05/09/19 at 1730 by Yelena Chavira RN Amended: Links added.
[2019-05-09] MEDS: DAPTOmycin 500 MG in SODIUM CHL 0.9% 50 ML IV SCH (17:59)
[2019-05-09] MEDS ORDERED: diphenhdrAMINE HCL 25 MG CAP PO ONE (22:00)
[2019-05-10] MEDS: LORazepam 2MG/ML-1ML VIAL IV PRN ×3 (00:03→22:30)
[2019-05-10] MEDS: HYDROmorphone HCL 2 MG/ML VL IV PRN ×5 (00:03→21:59)
--- NOTE | 2019-05-10 04:30 | NUR ---
PT ADMITTED TO HEIDY PT APPEARS TO BE RESTING. PER CLINICAL REHAB SPECIALIST WAS MEDICATED FOR PAIN AND HAS BEEN SLEEPING. PT ABLE TO GIVE SHORT RESPONSES. CONNECTED TO OXYGEN BY NC. ABDOMEN WOUND DRESSING CHANGED. PT TOLERATED WELL. COMPLETE PHYSICAL ASSESSMENT UNDER INTERVENTIONS. WILL CONTINUE TO MONITOR. CURRENTLY NPO. BED LOCKED FOR SAFETY AND PT INFORMED ON UNIT POLICIES.
--- NOTE | 2019-05-10 05:20 | NUR ---
PT APPEARS TO BE RESTING NO S/S OF RESPIRATORY DISTRESS. BREATHING EVEN AND UNLABORED.
[2019-05-10] MEDS: metroNIDAZOLE 500 MG TAB PO SCH ×3 (05:30→21:43)
[2019-05-10 08:00] VITALS: BP 101/71
[2019-05-10] MEDS: HYDROmorphone HCL 2 MG/ML VL IV STA (08:36)
[2019-05-10] MEDS: PANTOPRAZOLE 40 MG/10 ML VIAL INJ IV SCH (11:02)
[2019-05-10 11:29] LABS: Basophils # (auto) 0.1 10 ^3/uL (0-0.2); Eosinophils # (auto) 0.1 10 ^3/uL (0-0.8); Lymphocytes # (auto) 1.1 10 ^3/uL (0.4-5.4); Monocytes # (auto) 1.2 10 ^3/uL (0-1.3); Red Blood Cells 2.73 10^6/uL (4.0-5.20); White Blood Cell 12.4 10^3/uL (4.4-10.8)
[2019-05-10 11:31] LABS: Basophils % (auto) 0.7 % (0.0-2.0); Eosinophils % (auto) 0.7 % (0.0-7.0); Hematocrit 24.3 % (36.0-46.0); Hemoglobin 7.7 g/dL (12.2-16.2); Lymphocytes % (auto) 8.5 % (10.0-50.0); Mean Corpuscular Hemoglobin 28.2 pg (28.0-32.0); Mean Corpuscular Hgb Conc. 31.7 g/dL (32.0-36.0); Monocytes % (auto) 9.8 % (0.0-12.0); Neutrophils % (auto) 80.3 % (37.0-80.0); Platelet Count (auto) 343 10^3/uL (140-450)
[2019-05-10 11:32] LABS: Red Cell Distribution Width 22.2 % (11.8-14.3)
[2019-05-10] MEDS ORDERED: LEVOTHYROXINE SODIUM 112 MCG TAB PO ONE (11:45)
[2019-05-10] MEDS ORDERED: FLUCONAZOLE 100 MG TAB PO ONE (11:45)
[2019-05-10] MEDS ORDERED: MIDODRINE HCL 10 MG TAB PO ONE (11:45)
[2019-05-10 12:00] VITALS: BP 122/48
[2019-05-10] MEDS ORDERED: SODIUM CHL 0.9% 1000 ML BAG XX ONE (12:00)
[2019-05-10 12:01] LABS: Anion Gap 7 (5-15); Blood Urea Nitrogen 28 mg/dL (7-18); Calcium 8.6 mg/dL (8.5-10.1); Carbon Dioxide 27 mmol/L (21-32); Chloride 100 mmol/L (98-107); Glucose 82 mg/dL (74-106); Potassium 3.6 mmol/L (3.5-5.1); Sodium 134 mmol/L (136-145)
[2019-05-10 12:03] LABS: Alanine Aminotransferase 19 U/L (13-56); Aspartate Aminotransferase 29 U/L (15-37); BUN/Creatinine Ratio 5.3; GFR African American 10 mL/min; GFR Non-African American 9 mL/min
[2019-05-10 12:06] LABS: Alkaline Phosphatase 145 U/L (45-117); Bilirubin, Total 0.8 mg/dL (0.2-1.0); Total Protein 7.6 g/dL (6.4-8.2)
--- NOTE | 2019-05-10 12:07 | NUR ---
NUTRITION ASSESSMENT/CONSULT NOTES Please refer to link notes of nutrition screen form filed under the intervention section of the plan of care for further details. Est. Energy Needs: 5400-0741 kcal (20-22 kcal/kg BW). Est. Protein Needs: 83-97 gms/day (1.2-1.4 gms/kg Adj.BW). Will continue to monitor pertinent labs and reassess nutrient need prn Addendum: 05/10/19 at [address] Amended: Links added.
[2019-05-10] MEDS: MIDODRINE HCL 10 MG TAB PO SCH ×2 (12:30→18:34)
--- NOTE | 2019-05-10 13:22 | NUR ---
pt c/o itching , pt crying that it itches every where, especially right now during HD. I notified Dr. Fish, she Rx Benadryl 25 mg IV x1 dose.
[2019-05-10] MEDS ORDERED: diphenhdrAMINE HCL 50 MG/1 ML VL IV ONE (13:30)
[2019-05-10] MEDS: IBUPROFEN 800 MG TAB PO PRN (15:12)
--- NOTE | 2019-05-10 15:27 | NUR ---
I SPOKE WITH PT'S DAUGHTER LIZABETH AT I WANTED TO RECONCILE PT'S HOME MEDS DISCUSSED WITH DR. JEAN BAPTISTE. SHE STATES PT'S LIST SHOULD BE UPDATED, THAT PT WAS JUST DISCHARGED FROM HOSPITAL LAST WEDNESDAY, THE ONLY NEW MEDICATIONS ARE ELEQUIS AND LIPITOR HOWEVER SHE DOESN'T RECALL THE DOSAGE. I INSTRUCTED HER TO BRING ALL THE MEDICATION LIST TO [facility] DO A MEDICATION UPDATE. I REMOVED COUMADIN FROM PT'S MED RECONCILIATION LIST FOR THE TIME BEING.
[2019-05-10 15:54] VITALS: BP 114/55
--- NOTE | 2019-05-10 16:30 | NUR ---
TRANSFERRED TO A AIR LOSS SPECIALTY BED WITH PHYSICAL THERAPISTS ASSISTANCE, 3 OF THEM AND ONE ADDITIONAL RN. PT TOLERATED TRANSFER WITH MILD DISCOMFORT, PT WAS PRE-MEDICATED WITH DILAUDID FOR PAIN AND BENADRYL FOR ITCHING.
--- NOTE | 2019-05-10 17:15 | NUR ---
DR. DE LA ROSA ROUNDED ON PT UPDATED ON PT'S CONDITION I TOLD MD. PT HAS BEEN SCREAMING ON PAIN ALL DAY LONG, ONE MG Q 3 HR IS NOT COVERING PT'S PAIN. SUGGESTED GIVING PT THE ATIVAN ALONG WITH THE PAIN MEDICATION. I HAD GIVEN PT BENADRYL EARLIER AND IT HAD NOT TOUCH PT AND DILAUDID AND SHE WAS ONE HOUR AND A HALF AWAY FROM HER PAIN MEDS AND SHE WAS SCREAMING ON PAIN AGAIN. HER PRIMARY MD DID NOT WANT TO GIVE ANY ADDITIONAL PAIN MEDS. MD INCREASED DILAUDID TO 1.5 MG Q 3HR NEEDED FOR PAIN. PT'S VSS. PT IS NOT ON ANY PRESSORS AT THIS TIME, BUT IS ON MIDODRINE TO RAISE B/P.
--- NOTE | 2019-05-10 19:35 | NUR ---
Opening Shift Note RECEIVED REPORT FROM DAY NURSE. ASSUMED CARE OF PT IN 262. PT CURRENTLY RESTING WITH NO RESPIRATORY DISTRESS. PER RN PT MEDICATED FOR PAIN AND WILL FOLLOW EMAR FOR NEXT SCHEDULED TIME. ON SPECIALTY MATTRESS. COMPLETE ASSESSMENT UNDER INTERVENTIONS. CALL LIGHT WITHIN REACH AND BED LOCKED. WILL CONTINUE TO MONITOR PT FOR CHANGES.
[2019-05-10 20:00] VITALS: BP 128/48
--- NOTE | 2019-05-10 21:45 | NUR ---
MED REC. DAUGHTER HAS SHEET FOR PT TO START APIXABAN, 5MG MORNING AND NIGHT.
--- NOTE | 2019-05-10 22:15 | NUR ---
PT REPORTING ABD. PAIN MOANING WITH GRIMACING NOTES. ABDOMINAL AREA, 8/10 THAT IS MOSTLY COMING FROM ABDOMEN. WILL MEDICATE AND CHART ON EMAR.
[2019-05-11] VITALS: BP 106/48
[2019-05-11 04:00] VITALS: BP 112/4
--- NOTE | 2019-05-11 04:15 | NUR ---
BED BATH/LINEN CHANGE CLEANED USING CHG WIPES. PLACED NEW GOWN. OPTIFOAM ON MEDICAL GLUTEAL AREA. STILL ON SPECIALTY BED. WILL CONTINUE TO MONITOR.
[2019-05-11] MEDS: MIDODRINE HCL 10 MG TAB PO SCH ×3 (05:54→17:52)
[2019-05-11] MEDS: metroNIDAZOLE 500 MG TAB PO SCH ×3 (05:54→22:56)
[2019-05-11] MEDS: LEVOTHYROXINE SODIUM 112 MCG TAB PO SCH (06:28)
[2019-05-11] MEDS: HYDROmorphone HCL 2 MG/ML VL IV PRN ×2 (06:56→20:41)
--- NOTE | 2019-05-11 07:47 | NUR ---
ENDORSED CARE TO DAY NURSE PT IN ROOM APPEARS TO BE RESTING. WANTS TO BE LEFT ALONE TO REST. NO S/S OF RESPIRATORY DISTRESS.
[2019-05-11 08:00] VITALS: BP 99/55
[2019-05-11] MEDS: DAPTOmycin 500 MG in SODIUM CHL 0.9% 50 ML IV SCH (09:13)
[2019-05-11] MEDS: MEROPENEM 500MG IVPB 50 ML IV SCH (09:55)
[2019-05-11] MEDS: PANTOPRAZOLE 40 MG/10 ML VIAL INJ IV SCH (09:55)
--- NOTE | 2019-05-11 10:50 | NUR ---
DR. DE LA ROSA HERE TO SEE PATIENT. SEE MD NOTE.
--- NOTE | 2019-05-11 10:55 | NUR ---
DR. JEAN BAPTISTE HERE TO SEE PATIENT. SEE MD NOTES AND EMR FOR KATIA NEW ORDERS.
[2019-05-11 12:00] VITALS: BP 121/37
--- NOTE | 2019-05-11 12:20 | NUR ---
REPORT CALLED TO
[2019-05-11] MEDS: APIXABAN 5 MG TAB PO SCH ×2 (12:26→22:56)
--- NOTE | 2019-05-11 12:30 | NUR ---
Patient transferred from HEIDY to bed 283; lying supine in bed, with eyes closed. No S/S of distress/SOB or pain. Bed is locked and in lowest position and call light is within reach. Instructed on POC and to call for assist PRN, and patient could not verbalize understanding. Will continue to monitor Q 15 minutes
--- NOTE | 2019-05-11 12:30 | NUR ---
HEIDY pt transferred to floor JAYSON FOSTER transferred to 283 via gurney on youth nutritional monitor and portable 02. All patient personal belongings transferred with patient to receiving floor. Patient care transferred to STEPHAN HARPER.
--- NOTE | 2019-05-11 12:36 | NUR ---
Daughter duarte notified that patient was transferred to room 283.
--- NOTE | 2019-05-11 14:00 | NUR ---
Patient refused to take 1400 Flagyl.
[2019-05-11 16:52] VITALS: BP 127/61
[2019-05-11] MEDS: FLUCONAZOLE 100 MG TAB PO SCH (17:51)
[2019-05-11] MEDS: IBUPROFEN 800 MG TAB PO PRN (17:58)
--- NOTE | 2019-05-11 20:00 | NUR ---
open note assumed care of pt. upon entering room pt awake and alert to self. pt on room air no distress noted. pt is complaining of pain, 10/0-10 scale to which she would point to her abdomen, dressing is in place and is clean dry and intact. this nurse will medicate per MD and MAR. at this time the pain control doctor, Dr Florez is on [facility], he is aware of pt and stated he is "reviewing her chart". this nurse will await orders. pt updated on plan of care, to which she had no response, she continued to call out names of relatives. pt is on specialty mattress, bed locked, low and 2x rails up. pt call light in reach. this nurse will round q1hr and prn.
[2019-05-11] MEDS ORDERED: HYDROmorphone HCL 2 MG TAB PO PRN (20:30)
[2019-05-11 22:00] VITALS: BP 102/67
--- NOTE | 2019-05-11 22:02 | NUR ---
paged hospitalist for pt complaint of itchiness and request sleep aid.
[2019-05-11] MEDS ORDERED: TEMAZEPAM 15 MG CAP PO ONE (22:45)
[2019-05-11] MEDS ORDERED: diphenhdrAMINE HCL 25 MG CAP PO ONE (22:45)
--- NOTE | 2019-05-12 02:00 | NUR ---
Pt refused to allow this nurse to change bottom linens, she would begin to scream, yelling out for her grandmother and would intentionally position weight in such a way as to prevent from being turned. this nurse did provide cleansing with basin and washclothes along with cleanser in areas she would allow. gown changed, new blankets and top sheet.
[2019-05-12 05:00] VITALS: BP 117/48
[2019-05-12] MEDS: metroNIDAZOLE 500 MG TAB PO SCH ×2 (06:15→14:22)
[2019-05-12] MEDS: LEVOTHYROXINE SODIUM 112 MCG TAB PO SCH (06:15)
[2019-05-12] MEDS: MIDODRINE HCL 10 MG TAB PO SCH ×3 (06:15→18:00)
[2019-05-12] MEDS: HYDROmorphone HCL 2 MG/ML VL IV PRN ×2 (06:19→13:47)
--- NOTE | 2019-05-12 06:23 | NUR ---
picc dressing changed using sterile technique. pt tolerated well.
--- NOTE | 2019-05-12 07:15 | NUR ---
Opening Shift Note Assumed care of patient, awake and alert. No S/S of distress/SOB or pain. Instructed on POC and to call for assist PRN, will continue to monitor for changes Q1hr and PRN. Fall precautions in place per safety protocol.
[2019-05-12 08:32] VITALS: BP 120/70
[2019-05-12] MEDS ORDERED: SODIUM CHL 0.9% 1000 ML BAG XX ONE (09:15)
[2019-05-12] MEDS: MEROPENEM 500MG IVPB 50 ML IV SCH (10:00)
--- NOTE | 2019-05-12 10:00 | NUR ---
Refusing dressing change Patient currently refusing dressing changes. Patient is moaning, stating "get the bed off, I need it off." Explained to patient she is currently on the bed. Attempted repositioning patient to a comfortable position however, patient continues to move stating "take the gown down." I attempted to give the patient a bed bath however patient is still restless, I provided a quiet environment and received orders from MD López for ativan 0.5mg. Ativan administered to patient. Will cont to monitor patient.
--- NOTE | 2019-05-12 11:00 | NUR ---
Patient refusing to keep child welfare counselor in place. Educated patient on importance to keep monitor on, however, patient still refusing to keep on. Will cont to attempt placing monitor back on and will cont to monitor patient.
[2019-05-12 11:07] LABS: Basophils # (auto) 0.1 10 ^3/uL (0-0.2); Basophils % (auto) 0.5 % (0.0-2.0); Eosinophils # (auto) 0 10 ^3/uL (0-0.8); Eosinophils % (auto) 0.3 % (0.0-7.0); Hematocrit 27.2 % (36.0-46.0); Hemoglobin 8.7 g/dL (12.2-16.2); Lymphocytes # (auto) 1.5 10 ^3/uL (0.4-5.4); Mean Corpuscular Hemoglobin 28.2 pg (28.0-32.0); Mean Corpuscular Hgb Conc. 32.1 g/dL (32.0-36.0); Monocytes # (auto) 1.4 10 ^3/uL (0-1.3); Monocytes % (auto) 9.2 % (0.0-12.0); Neutrophils # (auto) 12.1 10 ^3/uL (1.6-8.6); Platelet Count (auto) 400 10^3/uL (140-450); Red Blood Cells 3.09 10^6/uL (4.0-5.20); White Blood Cell 15.1 10^3/uL (4.4-10.8)
[2019-05-12 11:13] LABS: Red Cell Distribution Width 21.8 % (11.8-14.3)
[2019-05-12 11:29] LABS: Albumin 2.2 g/dL (3.4-5.0); BUN/Creatinine Ratio 6.8; Bilirubin, Total 0.9 mg/dL (0.2-1.0); Calcium 9.4 mg/dL (8.5-10.1); Total Protein 8.7 g/dL (6.4-8.2)
[2019-05-12] MEDS ORDERED: LORazepam 2MG/ML-1ML VIAL IV PRN (12:00)
--- NOTE | 2019-05-12 12:24 | NUR ---
assessment Patient is a 64 year old female who does not want to talk. I called patients daughter Lizzie [phone] and per Lizzie prior to admission patient lived home with her and functioned with assistance. Per Lizzie patient has a wheelchair for home use. Lizzie is requesting a hospital bed on discharge. Patients PCP is Dr Gerber. Patient is on dialysis with [facility] at 1pm. Lizzie transports patient to he Dr manohar and home from the hospital. Per Lizzie she is not ready to talk about hospice. Per Lizzie she wants to resume with [facility] home health on discharge. Lizzie informed me she wants to resume home health for PT, med management, wound care and anything the MD feels patient may need. I informed Lizzie she has a right to speak to a 7th grade social studies teacher regarding all care. I informed Lizzie she has a right to participate in any and all discharge planning. Lizzie verbalized understanding and agreed to discharge plan home. Addendum: 05/12/19 at 1236 by Vy LESTER Amended: Links added.
--- NOTE | 2019-05-12 13:23 | NUR ---
Dialysis done Dialysis done, 2L out. Patients BP 120/81 and HR 118. Will cont to monitor patient.
[2019-05-12 13:30] VITALS: BP 123/76
[2019-05-12] MEDS: PANTOPRAZOLE 40 MG/10 ML VIAL INJ IV SCH (13:46)
[2019-05-12] MEDS: APIXABAN 5 MG TAB PO SCH (13:46)
--- NOTE | 2019-05-12 14:00 | NUR ---
Complete linen changed. Patient repositioned. Attempted to do wound care, however patient refused. Patient only allowed me to put zguard cream in abdominal folds as orders. Will cont to monitor patient.
[2019-05-12 16:28] VITALS: BP 120/76
[2019-05-12] MEDS: FLUCONAZOLE 100 MG TAB PO SCH (17:00)
--- NOTE | 2019-05-12 19:23 | NUR ---
Code Blue note. Received call from tele equipment monitor phototypesetting at 1836 regarding widening of QRS. This nurse was currently in the room speaking with family, when she checked on patient. This nurse called patients name and tried to arouse patient, however patient was not responding to name or shaking by nurse and daughter. This nurse called a code assist while checking for pulse, when pulse was found not to be present at 1839, code omkar was called. CPR was initiated. Please see CODE sheets and Provider/MD notes regarding patient code. Family updated on patient status post code. Code was called at 1904 by MD Dominguez. Family currently at bedside.
--- NOTE | 2019-05-12 20:17 | NUR ---
[facility] contacted ref# [id number], [facility] stated [facility] would not be following up. manager emergency department called, spoke with Triny case#[id number]
[2019-05-12] MEDS ORDERED: EPOETIN ALFA 4,000 UNIT/ML VL SC ONE (21:00)
[2019-05-12] MEDS ORDERED: MEROPENEM 500MG IVPB 50 ML IV SCH (23:00)
--- NOTE | 2019-05-12 23:00 | NUR ---
this nurse notified family of loan auditor decision to release remains, and family undecided on pursuing autopsy on their own, did provide info for mortuary of their choice, this nurse will call and follow up with family in regards to eta from mortuary. at which claudia ramachandran reported that family will leave for post mordem to be performed. approx 20 family members in room, chairs provided.
--- NOTE | 2019-05-12 23:10 | NUR ---
associate counsel call back. spoke with Abby Nunez who reported associate counsel releases remains to family and mortuary of choice. case #[id number]. this was communicated to family, and family gave this nurse [facility] [place] [phone]
--- NOTE | 2019-05-12 23:33 | NUR ---
this nurse spoke with enoch at [facility] in [place]. [phone] Addendum: 05/13/19 at 0001 by MIKE WU RN RN this nurse informed that [facility] would call back with ETA
--- NOTE | 2019-05-13 00:21 | NUR ---
edita bernabe call back, given 90 minute eta. this nurse informed duarte, daughter; who stated they needed "30 minutes". duarte agreed and at the conclusion of that time, postmordem can begin. duarte denied any further needs or concerns at this time.
--- NOTE | 2019-05-13 02:02 | NUR ---
post mortem care performed. daughter duarte confirmed that all patients belongings retrieved. [facility] operator [facility].
== END 2019-05-12 19:09 | disposition expired | DRG 871 ==
LOC: EDBD 01:57 → ER 02:04 → OVERFLOW 02:05 → DOU IN ICU 05-10 04:20 → TELE-WESTW 05-11 12:55
PROVIDERS: ADMIT Nurse Practitioner; ATTEND Internal Medicine Nephrology
PROC: 5A1D70Z Performance of Urinary Filtration, Intermittent, Less than 6 Hours Per Day (ICD-10-PCS; 2019-05-10)
PROC: 5A1D70Z Performance of Urinary Filtration, Intermittent, Less than 6 Hours Per Day (ICD-10-PCS; principal; 2019-05-12)
PROC: 5A12012 Performance of Cardiac Output, Single, Manual (ICD-10-PCS; 2019-05-12)
PROC: 0BH17EZ Insertion of Endotracheal Airway into Trachea, Via Natural or Artificial Opening (ICD-10-PCS; 2019-05-12)
DX: A41.9 Sepsis, unspecified organism (principal); N18.6 End stage renal disease; R65.21 Severe sepsis with septic shock; L03.311 Cellulitis of abdominal wall; E44.0 Moderate protein-calorie malnutrition; I13.2 Hypertensive heart and chronic kidney disease with heart failure and with stage 5 chronic kidney disease, or end stage renal disease; Z68.41 Body mass index [BMI] 40.0-44.9, adult; E66.01 Morbid (severe) obesity due to excess calories; I50.9 Heart failure, unspecified; D63.8 Anemia in other chronic diseases classified elsewhere; E03.9 Hypothyroidism, unspecified; F32.9 Major depressive disorder, single episode, unspecified; G62.9 Polyneuropathy, unspecified; D50.9 Iron deficiency anemia, unspecified; E88.09 Other disorders of plasma-protein metabolism, not elsewhere classified; Z86.73 Personal history of transient ischemic attack (TIA), and cerebral infarction without residual deficits; Z99.2 Dependence on renal dialysis; Z79.82 Long term (current) use of aspirin; Z79.899 Other long term (current) drug therapy; Z90.710 Acquired absence of both cervix and uterus; Z82.49 Family history of ischemic heart disease and other diseases of the circulatory system; Z86.718 Personal history of other venous thrombosis and embolism; I46.9 Cardiac arrest, cause unspecified; I49.01 Ventricular fibrillation
CPT/HCPCS: 36415; 74176; 80053; 83605; 83735; 85025; 85610; 85730; 87040; 87077; 87186; 87205; 90935; 96365; 96366; 96368; 96375; C9113; G0378; J0696; J1642; J2185; J2405; J2543; J3490